=== PATIENT | male | born 1990 ===

== ENCOUNTER → 2017-07-17 | Outpatient (REF) | payer SELFPAY ==
[2017-07-17 14:49] LABS: SPERM ABNORMAL FORMS 0
[2017-07-17 14:50] LABS: % NORMAL FORMS 10 % (>=4); IMMOTILITY 42 %; NON PROGRESSIVE MOTILITY (c) 15 %; PROGRESSIVE MOTILITY (a) 43 % (>=32); SPERM# 124.5 M/Ejac (>=39); TOTAL FUNCTIONAL 12.2 M/Ejac.; TOTAL MOTILITY 58 % (>=40); TOTAL PROGRESSIVE SPERM 53.5 M/Ejac.
== END ==
LOC: M LAB REF 14:45
PROVIDERS: ATTEND Family Medicine
DX: N46.8 Other male infertility (principal)